=== PATIENT | male | born 1955 | race Caucasian/White ===

== ENCOUNTER 2021-11-18 13:25 | Inpatient (IN) | payer BC ==
[2021-11-18 15:00] LABS: ANION GAP 16.9 mmol/L (5-15); CHLORIDE,CL 100 mmol/L (98-107); SODIUM,NA 138 mmol/L (136-145)
[2021-11-18] MEDS ORDERED: methylPREDNISolone Sodium Succinate 125 MG/2 ML SDV IVPUSH ONE (15:11)
[2021-11-18] MEDS ORDERED: Albuterol/Ipratropium 3.0-0.5 MG/3 ML Neb Soln NEB ONE (15:13)
--- NOTE | 2021-11-18 15:31 | EDM.PDOC ---
ED HPI GENERAL MEDICAL PROBLEM - General Chief Complaint: Respiratory Problem Stated Complaint: POST COVID Time Seen by Provider: 11/18/21 14:15 Source of Information: Reports: Patient History Limitations: Reports: No Limitations - History of Present Illness INITIAL COMMENTS - FREE TEXT/NARRATIVE: States had positive home test for COVID ten days ago. Increasingly SOB. Arrived with sat of 87 on room air. Had no treatment for COVID at home. Onset: Gradual Onset Date: 11/08/21 Duration: Getting Worse Location: Reports: Generalized Improves with: Reports: Rest Worsens with: Reports: Movement Context: Reports: Sick Contact Associated Symptoms: Reports: Cough, Malaise, Shortness of Breath - Related Data Allergies Allergy/AdvReac Type Severity Reaction Status Date / Time No Known Allergies Allergy Verified 11/18/21 14:49 Home Meds: Home Meds Metoprolol Succinate 1 tab PO DAILY 11/18/21 [History] atorvaSTATin [Lipitor] 10 mg PO BEDTIME 11/18/21 [History] lisinopriL [Lisinopril] 1 tab PO DAILY 11/18/21 [History] Past Medical History Cardiovascular History: Reports: High Cholesterol, Hypertension Social & Family History - Tobacco Use Tobacco Use Status *Q: Never Tobacco User Tobacco Use Within Last Twelve Months: No - Alcohol Use Alcohol Use History: No - Living Situation & Occupation Living situation: Reports: ED ROS GENERAL - Review of Systems Review Of Systems: See Below Constitutional: Reports: Malaise HEENT: Reports: No Symptoms Respiratory: Reports: Shortness of Breath, Cough Cardiovascular: Reports: No Symptoms Endocrine: Reports: No Symptoms GI/Abdominal: Reports: No Symptoms : Reports: No Symptoms Musculoskeletal: Reports: No Symptoms Skin: Reports: No Symptoms Neurological: Reports: No Symptoms Psychiatric: Reports: No Symptoms Hematologic/Lymphatic: Reports: No Symptoms Immunologic: Reports: No Symptoms ED EXAM, GENERAL - Physical Exam Exam: See Below Exam Limited By: No Limitations General Appearance: Alert, No Apparent Distress Eye Exam: Bilateral Eye: EOMI, Normal Inspection Ears: Normal External Exam Nose: Normal Inspection, Normal Mucosa, No Blood Throat/Mouth: Normal Inspection, Normal Lips, Normal Teeth, Normal Oropharynx, Normal Voice, No Airway Compromise Head: Atraumatic, Normocephalic Neck: Normal Inspection, Supple, Non-Tender, Full Range of Motion Respiratory/Chest: No Respiratory Distress, No Accessory Muscle Use, Chest Non- Tender, Decreased Breath Sounds, Other (lungs sound somewhat coarse) Cardiovascular: Normal Peripheral Pulses, Regular Rate, Rhythm, Tachycardia GI/Abdominal: Normal Bowel Sounds, Soft, Non-Tender, No Distention Back Exam: Normal Inspection, Full Range of Motion Extremities: Normal Inspection, Normal Range of Motion, Non-Tender, Normal Capillary Refill Neurological: Alert, Oriented, No Motor/Sensory Deficits Psychiatric: Normal Affect, Normal Mood Skin Exam: Warm, Dry, Intact, Normal Color, No Rash Lymphatic: No Adenopathy Course - Vital Signs Last Recorded V/S: Last Vital Signs Temp 97.3 F 11/19/21 16:22 Pulse 71 11/19/21 17:20 Resp 20 11/19/21 17:20 BP 129/87 11/19/21 16:22 Pulse Ox 93 L 11/19/21 17:20 - Orders/Labs/Meds Orders: Medication Orders Acetaminophen (Acetaminophen 325 Mg Tab) 650 mg PO Q4H PRN PRN Reason: Fever Greater Than 101 Ascorbic Acid (Ascorbic Acid 500 Mg Tab) 1,000 mg PO BID [facility] Last Admin: 11/19/21 11:26 Dose: 1,000 mg Documented by: SAHIL Atorvastatin Calcium (Atorvastatin 10 Mg Tab) 10 mg PO BEDTIME [facility] Last Admin: 11/18/21 20:18 Dose: 10 mg Documented by: SEDRICK Cholecalciferol (Cholecalciferol (Vitamin D3) 25 Mcg Tab) 25 mcg PO DAILY [facility] Last Admin: 11/19/21 11:25 Dose: 25 mcg Documented by: SAHIL Dexamethasone 2 mg/ (Dexamethasone 4 mg) 6 mg PO DAILY [facility] Stop: 11/27/21 08:01 Last Admin: 11/19/21 10:07 Dose: 6 mg Documented by: Admin: 11/18/21 20:18 Dose: 6 mg Documented by: SEDRICK Enoxaparin Sodium (Enoxaparin 40 Mg/0.4 Ml Syringe) 40 mg SUBCUT 1200 [facility] Last Admin: 11/19/21 11:25 Dose: 40 mg Documented by: SAHIL Potassium Chloride/Sodium Chloride (Normal Saline With 20 Meq Kcl) 1,000 mls @ 100 mls/hr IV ASDIRECTED [facility] Last Admin: 11/19/21 17:18 Dose: 100 mls/hr Documented by: Infusion: 11/19/21 16:15 Dose: 100 mls/hr Documented by: Admin: 11/19/21 06:15 Dose: 100 mls/hr Documented by: Infusion: 11/19/21 06:10 Dose: 100 mls/hr Documented by: Admin: 11/18/21 20:10 Dose: 100 mls/hr Documented by: SEDRICK Remdesivir 100 mg/ Sodium (Chloride) 100 mls @ 100 mls/hr IV Q24H [facility] Stop: 11/22/21 09:59 Last Admin: 11/19/21 10:17 Dose: 100 mls/hr Documented by: SAHIL Lisinopril (Lisinopril 10 Mg Tab) 10 mg PO DAILY [facility] Last Admin: 11/19/21 10:18 Dose: 10 mg Documented by: SAHIL Metoprolol Succinate (Metoprolol Succinate 50 Mg Tab.Er) 100 mg PO DAILY [facility] Last Admin: 11/19/21 10:17 Dose: 100 mg Documented by: SAHIL Ondansetron HCl (Ondansetron 4 Mg/2 Ml Sdv) 4 mg IV Q6H PRN PRN Reason: Nausea/Vomiting Zinc Sulfate (Zinc Sulfate 220 Mg Cap) 220 mg PO DAILY [facility] Stop: 11/24/21 10:31 Last Admin: 11/19/21 11:26 Dose: 220 mg Documented by: SAHIL Labs: Laboratory Tests 11/18/21 11/18/21 11/18/21 Range/Units 02:27 14:27 14:27 WBC 8.9 (4.0-10.0) x10^3/uL RBC 5.09 (4.5-6.0) x10^6/uL Hgb 14.7 (14.0-18.0) g/dL Hct 42.0 (40.0-52.0) % MCV 82.5 (78.0-93.0) fL MCH 28.9 (26.0-32.0) pg MCHC 35.0 (32.0-36.0) g/dL RDW Coeff of Theodora 13.1 (10.0-15.0) % Plt Count 286 (130-400) x10^3/uL Immature Gran % (Auto) 0.60 H (0.00-0.43) % Neut % (Auto) 77.5 (50.0-80.0) % Lymph % (Auto) 13.3 L (25.0-50.0) % Brooks % (Auto) 8.4 (2.0-11.0) % Eos % (Auto) 0.1 (0.0-4.0) % Baso % (Auto) 0.1 L (0.2-1.2) % Neut # (Auto) 6.9 (1.8-7.7) x10^3/uL Lymph # (Auto) 1.2 (1.0-4.8) x10^3/uL Brooks # (Auto) 0.8 (0.0-0.8) x10^3/uL Eos # (Auto) 0.0 (0.0-0.5) x10^3/uL Baso # (Auto) 0.0 (0.0-0.2) x10^3/uL Immature Gran # (Auto) 0.05 (0.00-0.07) x10^3/uL D-Dimer, Quantitative 0.90 H (<=0.58) mg/LFEU Sodium 138 (136-145) mmol/L Potassium 3.9 (3.5-5.1) mmol/L Chloride 100 (98-107) mmol/L Carbon Dioxide 25 (21-32) mmol/L Anion Gap 16.9 H (5-15) mmol/L BUN 19 H (7-18) mg/dL Creatinine 1.2 (0.70-1.30) mg/dL Est Cr Clr Drug Dosing TNP Estimated GFR (MDRD) > 60 Glucose 115 H (70-99) mg/dL Lactic Acid (0.4-2.0) mmol/L Calcium 8.6 (8.5-10.1) mg/dL Corrected Calcium 9.2 (8.5-10.1) mg/dL Total Bilirubin 1.9 H (0.2-1.0) mg/dL Direct Bilirubin (0.00-0.20) mg/dL Indirect Bilirubin AST 68 H (15-37) U/L ALT 121 H (16-63) U/L Alkaline Phosphatase 114 (46-116) U/L Total Protein 7.6 (6.4-8.2) g/dL Albumin 3.2 L (3.4-5.0) g/dL Globulin 4.4 Albumin/Globulin Ratio 0.73 SARS CoV-2 RNA Rapid RENATO (NEGATIVE) 11/18/21 11/18/21 11/18/21 Range/Units 14:27 14:27 17:20 WBC (4.0-10.0) x10^3/uL RBC (4.5-6.0) x10^6/uL Hgb (14.0-18.0) g/dL Hct (40.0-52.0) % MCV (78.0-93.0) fL MCH (26.0-32.0) pg MCHC (32.0-36.0) g/dL RDW Coeff of Theodora (10.0-15.0) % Plt Count (130-400) x10^3/uL Immature Gran % (Auto) (0.00-0.43) % Neut % (Auto) (50.0-80.0) % Lymph % (Auto) (25.0-50.0) % Brooks % (Auto) (2.0-11.0) % Eos % (Auto) (0.0-4.0) % Baso % (Auto) (0.2-1.2) % Neut # (Auto) (1.8-7.7) x10^3/uL Lymph # (Auto) (1.0-4.8) x10^3/uL Brooks # (Auto) (0.0-0.8) x10^3/uL Eos # (Auto) (0.0-0.5) x10^3/uL Baso # (Auto) (0.0-0.2) x10^3/uL Immature Gran # (Auto) (0.00-0.07) x10^3/uL D-Dimer, Quantitative (<=0.58) mg/LFEU Sodium (136-145) mmol/L Potassium (3.5-5.1) mmol/L Chloride (98-107) mmol/L Carbon Dioxide (21-32) mmol/L Anion Gap (5-15) mmol/L BUN (7-18) mg/dL Creatinine (0.70-1.30) mg/dL Est Cr Clr Drug Dosing Estimated GFR (MDRD) Glucose (70-99) mg/dL Lactic Acid 1.8 (0.4-2.0) mmol/L Calcium (8.5-10.1) mg/dL Corrected Calcium (8.5-10.1) mg/dL Total Bilirubin 1.9 H (0.2-1.0) mg/dL Direct Bilirubin 1.01 H (0.00-0.20) mg/dL Indirect Bilirubin 0.89 AST 68 H (15-37) U/L ALT 121 H (16-63) U/L Alkaline Phosphatase 114 (46-116) U/L Total Protein 7.6 (6.4-8.2) g/dL Albumin 3.2 L (3.4-5.0) g/dL Globulin 4.4 Albumin/Globulin Ratio 0.73 SARS CoV-2 RNA Rapid RENATO Positive H (NEGATIVE) Meds: Medications Generic Name Dose Route Start Last Admin Trade Name Freq PRN Reason Stop Dose Admin Acetaminophen 650 mg 11/18/21 18:30 Acetaminophen 325 Mg Tab PO Q4H PRN Fever Greater Than 101 Ascorbic Acid 1,000 mg 11/19/21 10:30 11/19/21 11:26 Ascorbic Acid 500 Mg Tab PO 1,000 mg BID [facility] Administration Atorvastatin Calcium 10 mg 11/18/21 20:00 11/18/21 20:18 Atorvastatin 10 Mg Tab PO 10 mg BEDTIME [facility] Administration Cholecalciferol 25 mcg 11/19/21 10:30 11/19/21 11:25 Cholecalciferol (Vitamin D3) 25 Mcg Tab PO 25 mcg DAILY [facility] Administration Dexamethasone 2 mg/ 6 mg 11/18/21 18:45 11/19/21 10:07 Dexamethasone 4 mg PO 11/27/21 08:01 6 mg DAILY [facility] Administration Enoxaparin Sodium 40 mg 11/19/21 12:00 11/19/21 11:25 Enoxaparin 40 Mg/0.4 Ml Syringe SUBCUT 40 mg 1200 [facility] Administration Potassium Chloride/Sodium Chloride 1,000 mls @ 100 mls/hr 11/18/21 19:00 11/19/21 17:18 Normal Saline With 20 Meq Kcl IV 100 mls/hr ASDIRECTED [facility] Administration Remdesivir 100 mg/ Sodium 100 mls @ 100 mls/hr 11/19/21 09:00 11/19/21 10:17 Chloride IV 11/22/21 09:59 100 mls/hr Q24H [facility] Administration Lisinopril 10 mg 11/19/21 08:00 11/19/21 10:18 Lisinopril 10 Mg Tab PO 10 mg DAILY [facility] Administration Metoprolol Succinate 100 mg 11/19/21 08:00 11/19/21 10:17 Metoprolol Succinate 50 Mg Tab.Er PO 100 mg DAILY [facility] Administration Ondansetron HCl 4 mg 11/18/21 18:45 Ondansetron 4 Mg/2 Ml Sdv IV Q6H PRN Nausea/Vomiting Zinc Sulfate 220 mg 11/19/21 10:30 11/19/21 11:26 Zinc Sulfate 220 Mg Cap PO 11/24/21 10:31 220 mg DAILY [facility] Administration Discontinued Medications Generic Name Dose Route Start Last Admin Trade Name Freq PRN Reason Stop Dose Admin Albuterol/Ipratropium 3 ml 11/18/21 15:13 11/18/21 15:38 Albuterol/Ipratropium 3.0-0.5 Mg/3 Ml Neb Soln NEB 11/18/21 15:14 3 ml ONETIME ONE Administration Remdesivir 200 mg/ Sodium 250 mls @ 250 mls/hr 11/18/21 17:42 11/18/21 18:55 Chloride IV 11/18/21 18:41 250 mls/hr ONETIME ONE Administration Remdesivir 100 mg/ Sodium 100 mls @ 100 mls/hr 11/19/21 09:00 Chloride IV 11/22/21 09:59 Q24H [facility] Iopamidol 55 ml 11/18/21 15:40 11/18/21 15:40 Iopamidol 755 Mg/Ml 100 Ml Bottle IVPUSH 11/18/21 15:41 55 ml ONETIME ONE Administration Methylprednisolone Sodium Succinate 125 mg 11/18/21 15:11 11/18/21 15:38 Methylprednisolone Sodium Succinate 125 Mg/2 Ml Sdv IVPUSH 11/18/21 15:12 125 mg ONETIME ONE Administration - Radiology Interpretation CT Results Date: 11/18/21 (pneumonia) - Re-Assessments/Exams Free Text/Narrative Re-Assessment/Exam: 11/18/21 17:18 Cannot maintain o2 sats above 90 without supplemental oxygen. No distress. Dr. Redd accepted pt for admission. 11/18/21 17:36 Free Text/Narrative Re-Assessment/Exam: 11/18/21 17:43 COVID positive per our lab. Remdesivir 200mg initial dose ordered per request of Dr. Redd. Departure - Departure Time of Disposition: 18:30 Disposition: Admitted As Inpatient 68 Condition: Good Clinical Impression: Pneumonia due to 2019 novel coronavirus - Discharge Information - Problem List & Annotations (1) Pneumonia due to 2019 novel coronavirus SNOMED Code(s): 994909918177043631 Code(s): U07.1 - COVID-19; J12.82 - PNEUMONIA DUE TO CORONAVIRUS DISEASE 2019 Status: Acute Current Visit: Yes Onset Date: ~11/08/21 Annotation/Comment:: Home test with symptom onset on 11/08/21 - Problem List Review Problem List Initiated/Reviewed/Updated: Yes
[2021-11-18] MEDS ORDERED: Iopamidol 755 Mg/ML 100 ML Bottle IVPUSH ONE (15:40)
--- NOTE | 2021-11-18 17:02 | CR ---
[id number] RAD/RAD Chest PA And Lateral EXAM: RAD Chest PA And Lateral CLINICAL DATA: SHORTNESS OF BREATH COVID COMPARISON: No previous similar exam is available. FINDINGS: Extensive bilateral infiltrates are seen. The cardiomediastinal contour is moderately enlarged IMPRESSION: EXTENSIVE BILATERAL PNEUMONIA Pete Hunt MD 11/18/21 [id number] Thank you for allowing us to participate in the care of your patient.
--- NOTE | 2021-11-18 17:04 | CT ---
[id number] CT/CTA Chest Exam: CTA Chest Clinical Data: SHORTNESS OF BREATH COVID ELEVATED D-DIMER COMPARISON: NO PREVIOUS SIMILAR EXAM IS AVAILABLE FINDINGS: There are extensive bilateral infiltrates There is no pulmonary embolus. There is no mediastinal mass or adenopathy IMPRESSION: NO PULMONARY EMBOLI EXTENSIVE BILATERAL PNEUMONIA Pete Hunt MD 11/18/21 [id number] Thank you for allowing us to participate in the care of your patient.
[2021-11-18] MEDS ORDERED: REMDESIVIR 200 MG in Sodium Chloride 0.9% 250 ML IV ONE (17:42)
[2021-11-18] MEDS ORDERED: Acetaminophen 325 MG Tab PO PRN (18:30)
[2021-11-18] MEDS ORDERED: Ondansetron 4 MG/2 ML SDV IV PRN (18:45)
[2021-11-18 19:56] LABS: CORONAVIRUS COVID-19 NAA POSITIVE (NEGATIVE)
[2021-11-18] MEDS ORDERED: atorvaSTATin 10 MG Tab PO SCH (20:00)
[2021-11-18] MEDS: NS + KCl 20mEq/L 1,000 ML IV SCH (20:10)
[2021-11-18] MEDS: dexAMETHasone 2 MG, dexAMETHasone 4 MG PO SCH ×2 (20:18)
--- NOTE | 2021-11-18 20:25 | HP ---
CHIEF COMPLAINT: Shortness of breath with COVID. HISTORY OF PRESENT ILLNESS: The patient is a 66-year-old male who presented to the emergency room with being short of breath and ill feeling. He had done a home test for COVID, which was positive on 11/08/2021, and that was the day of his symptoms that had started. He had been out in [place] visiting family and had not been exposed to anybody else who had COVID at that time. He did not call the clinic to inform anybody to consider monoclonal antibody infusion. He has gradually gotten worse. He has not eaten well for a few days. He does not smell as normally as he should. He denies any chest pain. He does feel weak. He was last into the clinic to see Makayla Weber, his primary care provider in November. MEDICATIONS: The patient is currently on are Lipitor 10 mg 1 pill daily, lisinopril 10 mg 1 pill daily, metoprolol 100 mg SR 1 pill daily. ALLERGIES: None known. PAST MEDICAL HISTORY: The patient has hypertension, hyperlipidemia, obesity. 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 He has had impaired fasting glucose. The patient has not received COVID vaccination. PAST SURGICAL HISTORY: None. FAMILY MEDICAL HISTORY: His father had dementia, hypertension, diabetes. Mother had heart disease, osteoporosis, high cholesterol, SVT. Sisters had ovarian cancer. Son and daughter are healthy. SOCIAL HISTORY: The patient is currently retired. He previously had worked at [employer] (formerly [employer]) and then worked for the [employer] [place], but now just retired within the past year. He is . He is a former smoker. Does not consume alcohol. He has gained weight recently. REVIEW OF SYSTEMS: He is feeling weak, coughing, short of breath. Feels not much appetite. No bruising on his skin. He does have a scratch on the back of his right hand. OBJECTIVE: Vital Signs: Show temperature of 37.7, pulse 118, blood pressure 129/86, respiratory rate 24, saturations are 87 on room air. With 3 L, he goes up to 91%. General: Physical exam reveals an alert male who appears a little bit weak. Skin: [place], warm, and dry. HEENT: Pupils are equal and reactive to light. Pharynx is not examined due to COVID. Neck: No anterior cervical lymphadenopathy. Heart: Regular rate and rhythm without murmurs or bruits. Lungs: Have diminished breath sounds on bases. Abdomen: Obese, soft. Extremities: Lower extremities, no edema. His right upper hand dorsum has a scratch on it. Neurologic: He is alert and oriented x3. SUMMARY OF EMERGENCY ROOM COURSE: He was given a DuoNeb treatment. He was placed on oxygen. LABORATORY DATA: Showed positive COVID, a repeat in the emergency room. White blood cell count was 8.9, hemoglobin 14.7, platelets 286, 77 segs, 13 lymphs. D- dimer was positive at 0.9. Sodium is 138, potassium 3.9, creatinine is 1.2, BUN 19. GFR greater than 60. Glucose 118. Total bili is 1.01, AST 68, ALT 121, alk phos 114, albumin 3.2. DIAGNOSTIC DATA: Chest x-ray was read as having; extensive bilateral infiltrates are seen, cardiomegaly noted. Angiogram came back negative for PE. There are extensive bilateral infiltrates noted. No mediastinal lymphadenopathy. IMPRESSION: 1. Acute COVID-19 pneumonia. 2. Acute respiratory failure. 3. Hypertension. 4. Hypercholesterolemia. 5. Obesity. PLAN: The patient will be admitted to acute care. He will receive remdesivir for 5 days with initial dose of 200 mg and then 100 mg daily for 5 days. He was started on dexamethasone 6 mg 1 pill daily, which he will need for 10 days. We will do serial lab monitoring. We will place him on Lovenox for DVT prophylaxis. We will give him some IV fluids gingerly to help as he has not eaten well, but we will be careful to not over hydrate him. We will hold back on any further nebulizers to avoid aerosolization of COVID. The patient is code level 1 status. I anticipate that the patient will need to be hospitalized for a few days, possibly 5 days, and if the patient's respiratory status would worsen, then he may need to be transferred to a higher level of care. We will also check the patient for influenza just to make certain he does not have that as well. The patient will be in isolation as he does require oxygen right now, and he is just newly being treated with his remdesivir and Decadron. GM11/18/2021 19:06:01 MODL: 11/18/2021 20:20:25 /[id number]
[2021-11-19] MEDS: NS + KCl 20mEq/L 1,000 ML IV SCH ×2 (06:15→17:18)
[2021-11-19] MEDS ORDERED: REMDESIVIR 100 MG in Sodium Chloride 0.9% 100 ML IV SCH (09:00)
[2021-11-19 09:24] LABS: CHLORIDE,CL 104 mmol/L (98-107); SODIUM,NA 140 mmol/L (136-145)
[2021-11-19 09:27] LABS: ANION GAP 16.9 mmol/L (5-15)
[2021-11-19] MEDS: dexAMETHasone 2 MG, dexAMETHasone 4 MG PO SCH ×2 (10:07)
[2021-11-19] MEDS: Metoprolol Succinate 50 MG Tab.ER PO SCH (10:17)
[2021-11-19] MEDS: REMDESIVIR 100 MG in Sodium Chloride 0.9% 100 ML IV SCH (10:17)
[2021-11-19] MEDS: Lisinopril 10 MG Tab PO SCH (10:18)
--- NOTE | 2021-11-19 10:47 | PN ---
Progress Note for HUMAIRA GONZALES Date: 11/19/2021 Room #: VM.206 SUBJECTIVE: This is the patient's second hospital day after being admitted with coronavirus disease pneumonitis with respiratory failure. He slept well last evening, offers no concerns or complaints. It is noted that his oxygen requirement, though, did go up during the night to 5 L from admission where he initially was at 3 L. The patient is starting to cough up some material. He is trying to lie prone. OBJECTIVE: Vital Signs: His temperature is 36.0, his blood pressure is 145/85, respiratory rate is 20, saturations are 91% on 5 L. Heart: Regular rate and rhythm. Lungs: Have a few wheezes at bases bilaterally. Abdomen: Obese. Extremities: Lower extremities, no edema. LABORATORY DATA: Lab work today shows his white blood cell count 4.5, hemoglobin 13.0, platelets 319, with 72 segs, 21 lymphs. INR was 1.0. Sodium is 140, potassium 3.9, BUN 26, creatinine 1.1, GFR greater than 60, glucose 163, calcium 8.2, ferritin high at 3282, total bilirubin has improved to 1.2, AST has improved to 58, ALT improved to 113, alkaline phosphatase 93, LDH 418, which is elevated and this was his first reading. CK is elevated at 333 at first time run. CRP is 9.3. ProBNP 136, albumin 2.7. Procalcitonin 0.07. Influenza testing was negative. Coronavirus disease was positive. IMPRESSION: 1. Coronavirus disease pneumonia. 2. Respiratory failure related to coronavirus disease. 3. Elevated LFTs. 4. Elevated CK. 5. HTN 6. Hypercholesterolemia. 7. Obesity. PLAN: We will continue low-dose IV fluids as the patient has not been eating well. We will hold his statin. We will do serial monitoring of his labs. We will start incentive spirometry. We will continue his Remdesivir as well as Decadron. We will also add vitamin C, D, and zinc as well. The patient is still requiring oxygen, but we will not do nebs at all. GM11/19/2021 10:22:16 MODL: 11/19/2021 10:40:06 /[id number] [facility]
[2021-11-19] MEDS: Enoxaparin 40 MG/0.4 ML Syringe SUBCUT SCH (11:25)
[2021-11-19] MEDS: Cholecalciferol (Vitamin D3) 25 MCG Tab PO SCH (11:25)
[2021-11-19] MEDS: Ascorbic Acid 500 MG Tab PO SCH ×2 (11:26→20:46)
[2021-11-19] MEDS: Zinc Sulfate 220 MG Cap PO SCH (11:26)
[2021-11-20] MEDS: NS + KCl 20mEq/L 1,000 ML IV SCH (01:53)
[2021-11-20 09:03] LABS: CHLORIDE,CL 108 mmol/L (98-107); SODIUM,NA 142 mmol/L (136-145)
[2021-11-20 09:04] LABS: ANION GAP 13.7 mmol/L (5-15)
--- NOTE | 2021-11-20 09:13 | PN ---
Progress Note for HUMAIRA GONZALES Date: 11/20/2021 Room #: VM.206 SUBJECTIVE: This is his third hospital day with COVID. He is feeling better. He slept better. His appetite has improved. It is noted that he has been able to be weaned down on his oxygen to some extent. OBJECTIVE: Vital Signs: His weight is 129.8 kg which is up 2.2 kg from admission that may reflect dehydration that has improved. Temperature is 36.4, pulse 79, blood pressure is 119/77, saturations are 94% on 4 L. Heart: Regular rate and rhythm. Lungs: Have diminished breath sounds on bases. Abdomen: Soft. Extremities: No edema. LABORATORY DATA: Lab is pending today. IMPRESSION: 1. Coronavirus disease pneumonia. 2. Respiratory failure, improving. 3. Hypertension. 4. Hypercholesterolemia. 5. Obesity. 6. Elevated liver function tests. 7. Elevated CK. PLAN: We will stop his IV fluids right now. We will stop the continuous heart monitoring, and we will just do oxygen monitoring intermittently every 4 hours, and the patient is improving. GM11/20/2021 08:40:45 MODL: 11/20/2021 09:05:57 /[id number]
[2021-11-20] MEDS: Ascorbic Acid 500 MG Tab PO SCH ×2 (10:25→19:27)
[2021-11-20] MEDS: dexAMETHasone 2 MG, dexAMETHasone 4 MG PO SCH ×2 (10:26)
[2021-11-20] MEDS: Lisinopril 10 MG Tab PO SCH (10:26)
[2021-11-20] MEDS: Metoprolol Succinate 50 MG Tab.ER PO SCH (10:27)
[2021-11-20] MEDS: Cholecalciferol (Vitamin D3) 25 MCG Tab PO SCH (10:27)
[2021-11-20] MEDS: Zinc Sulfate 220 MG Cap PO SCH (10:27)
[2021-11-20] MEDS: REMDESIVIR 100 MG in Sodium Chloride 0.9% 100 ML IV SCH (10:29)
--- NOTE | 2021-11-20 12:54 | CR ---
[id number] RAD/RAD Chest PA or AP 1V EXAM: SINGLE VIEW CHEST. INDICATION: FOLLOW-UP PNEUMONIA COMPARISON: CORRELATION IS MADE WITH NOVEMBER 18, 2021 FINDINGS: Bilateral infiltrates are not decreased The cardiac silhouette is stable IMPRESSION: NO CHANGE SINCE LAST EXAM Pete Hunt MD 11/20/21 6003 Thank you for allowing us to participate in the care of your patient.
[2021-11-20] MEDS: Enoxaparin 40 MG/0.4 ML Syringe SUBCUT SCH (13:25)
[2021-11-20] MEDS: Lactated Ringers 1,000 ML IV SCH ×2 (13:26→21:41)
[2021-11-21] MEDS: Lactated Ringers 1,000 ML IV SCH (06:16)
[2021-11-21 07:31] LABS: CHLORIDE,CL 106 mmol/L (98-107); SODIUM,NA 139 mmol/L (136-145)
[2021-11-21 07:33] LABS: ANION GAP 11.2 mmol/L (5-15)
--- NOTE | 2021-11-21 10:45 | PN ---
Progress Note for HUMAIRA GONZALES Date: 11/21/2021 Room #: VM.206 SUBJECTIVE: This is the patient's fourth hospital day for COVID treatment. He is getting tired of being in the current room. He is feeling a little bit better. He is able to breathe a little bit deeper. Patient's Lipitor has been held. We did resume IV fluids yesterday because his CK had gone up higher. The patient otherwise offers no concerns. OBJECTIVE: Vital Signs: His weight is 128.6, which is down 1 kg from yesterday. Temperature is 37.1, blood pressure is 128/85, and respiratory rate is 23. He is on 2 L to be 90%. Heart: Regular rate and rhythm. Lungs: Clear to auscultation. Abdomen: Soft. General: He appears in no acute distress. LABORATORY DATA: His lab today shows that his white blood cell count is 11.7, hemoglobin 12.8, and platelets are 367. Sodium 139, potassium 4.8, and creatinine 1.2. His AST has stayed about the same at 69, ALT 157 up slightly. LDH is 384, which is up slightly from yesterday. CK has improved to 363. CRP is 4.9. IMPRESSION: 1. COVID pneumonitis. 2. Respiratory failure secondary to COVID. 3. Transaminitis. 4. Elevated CPK. PLAN: We will saline lock his IV fluids. Encourage the patient to be up moving around and use incentive spirometry. Anticipate, he will be able to be discharged home tomorrow hopefully without oxygen, but if he needs to be set up with home oxygen that also can be arranged.He can come out of isolation as he's been sick beyond 10 days, without a fever. GM11/21/2021 10:17:18 MODL: 11/21/2021 10:38:29 /[id number] ARMANI
[2021-11-21] MEDS: dexAMETHasone 2 MG, dexAMETHasone 4 MG PO SCH ×2 (10:56)
[2021-11-21] MEDS: Ascorbic Acid 500 MG Tab PO SCH ×2 (10:57→20:44)
[2021-11-21] MEDS: Cholecalciferol (Vitamin D3) 25 MCG Tab PO SCH (10:57)
[2021-11-21] MEDS: Zinc Sulfate 220 MG Cap PO SCH (10:58)
[2021-11-21] MEDS: Metoprolol Succinate 50 MG Tab.ER PO SCH (10:59)
[2021-11-21] MEDS: Lisinopril 10 MG Tab PO SCH (10:59)
[2021-11-21] MEDS: REMDESIVIR 100 MG in Sodium Chloride 0.9% 100 ML IV SCH (11:09)
[2021-11-21] MEDS: Enoxaparin 40 MG/0.4 ML Syringe SUBCUT SCH (11:09)
[2021-11-21] MEDS ORDERED: Potassium Chloride Riders 10 MEQ in Premix Bag 1 BAG IV ONE (14:00)
[2021-11-22 07:32] LABS: CHLORIDE,CL 106 mmol/L (98-107); SODIUM,NA 141 mmol/L (136-145)
[2021-11-22 07:36] LABS: ANION GAP 11.5 mmol/L (5-15)
[2021-11-22] MEDS: Cholecalciferol (Vitamin D3) 25 MCG Tab PO SCH (08:12)
[2021-11-22] MEDS: Metoprolol Succinate 50 MG Tab.ER PO SCH (08:12)
[2021-11-22] MEDS: Ascorbic Acid 500 MG Tab PO SCH (08:12)
[2021-11-22] MEDS: Zinc Sulfate 220 MG Cap PO SCH (08:12)
[2021-11-22] MEDS: dexAMETHasone 2 MG, dexAMETHasone 4 MG PO SCH ×2 (08:13)
[2021-11-22] MEDS: Lisinopril 10 MG Tab PO SCH (08:13)
[2021-11-22] MEDS: REMDESIVIR 100 MG in Sodium Chloride 0.9% 100 ML IV SCH (08:18)
--- NOTE | 2021-11-22 08:41 | PN ---
Progress Note for HUMAIRA GONZALES Date: 11/22/2021 Room #: VM.206 SUBJECTIVE: This is the patient's fifth hospital day with having COVID. The patient is feeling better. He was able to be weaned off oxygen. He is eager for discharge home. He is still a little bit weak. The patient was taken out of isolation yesterday as he had been beyond the time limit for COVID isolation. OBJECTIVE: Vital Signs: His weight is 128.4, which is down 0.2 from yesterday. His temperature is 36.6, pulse 70, blood pressure is 120/78, sats are 93% on room air. Heart: Regular rate and rhythm. Lungs: Clear to auscultation. Abdomen: Soft. Psychiatric: Mood is quite good. LABORATORY DATA: His white blood cell count is 6.8, hemoglobin 12.6. Sodium is 141, potassium 4.5, creatinine 1.0, glucose 101. Ferritin is improved at 1987. AST is normal at 37, ALT improved to 120, alk phos 80. LDH is improved to 333. CK is elevated at 458. CXR Preliminary, still persistant course bilateral infiltrates/ IMPRESSION: 1. Coronavirus disease pneumonia. 2. Respiratory failure, which is resolved. 3. Elevated CK. 4. Elevated liver function tests, which have improved. PLAN: The patient will be discharged home today. We will have him hold his Lipitor until he is seen in the clinic. Will have him follow up with Makayla Weber in a week's time. He will still continue on the Decadron. GM11/22/2021 08:21:54 MODL: 11/22/2021 08:37:01 /[id number] [facility]
--- NOTE | 2021-11-22 10:17 | CR ---
[id number] RAD/RAD Chest PA And Lateral EXAM: RAD Chest PA And Lateral INDICATION: FOLLOW UP COVID PNEUMONIA. COMPARISON: November 20, 2021. DISCUSSION: Again identified are patchy pulmonary infiltrates bilaterally, left greater than right. No significant change when compared to the prior study. No pneumothorax. No pleural effusion. IMPRESSION: Stable chest. Pelon Bunch DO 11/22/21 1016 Thank you for allowing us to participate in the care of your patient.
--- NOTE | 2021-11-22 22:27 | DISCH ---
DISCHARGE DIAGNOSES: 1. COVID-19 pneumonia. 2. Respiratory failure secondary to COVID. 3. Elevated creatine kinase test. 4. Elevated liver function tests. 5. Hypertension. 6. Obesity. 7. Hypercholesterolemia. 8. Obstructive sleep apnea. SUMMARY OF ADMIT HISTORY AND PHYSICAL: The patient presented to the emergency room on 11/18/2021 after being short of breath. The patient had done a home COVID test that was positive on 11/08/2021 and that was the day his symptoms started. He had been out in [place], visiting relatives. He had not gotten the COVID vaccine. He did not inform anybody that he was positive to consider monoclonal antibody infusion. He has gradually gotten worse. He has not eaten well for a few days. He does not smell normally. Denies chest pain. He does feel weak. He normally sees KAREN Benz, as his primary care provider. Physical exam on admission, his temperature was 37.7, pulse was 118, blood pressure 129/86, respiratory rate 24. Sats were 87 on room air; with 3 L, he went up to 91%. His lungs had diminished breath sounds bilaterally. Labs showed his white blood cell count 8.9, hemoglobin 14.7, platelets 289, 77 segs, 13 lymphocytes. D-dimer positive at 0.9. Sodium 138, potassium 3.9, creatinine 1.2, BUN 19, GFR greater than 60, glucose 118, total bilirubin 1.01, AST 68, ALT 121, alkaline phosphatase 114, albumin 3.2. Chest x-ray had extensive bilateral infiltrates with cardiomegaly. Angiogram of chest came back negative for PE, but had extensive bilateral infiltrates. SUMMARY OF HOSPITAL COURSE: The patient was admitted on 11/18/2021 and discharged on 11/22/2021. The patient was placed on acute care. He was given remdesivir 200 mg for day #1 IV and then 100 mg days 2 through 5. He was placed on dexamethasone 6 mg daily oral. The patient was given IV hydration as he was not eating well; however, being somewhat cautious to not over-hydrate his lungs. The patient had been given albuterol neb in the ER, but it was not continued while he was hospitalized. Additional lab work was then requested, which showed that he was negative for influenza A and negative for influenza B, his lactic acid was 1.8. By 11/19, white blood cell count went down to 4.5. On 11/19, his magnesium was 2.4, ferritin high at 3284, total bilirubin improved to 1.2, AST had stayed the same, LDH was elevated at 418, CK was elevated at 333, CRP was 9.3, proBNP was 136, procalcitonin was 0.7. IV fluids were stopped; however, it was noted the patient was not eating well. By 11/20, his CK went up to 417, AST up to 63, ALT up to 138. By 11/21, he was eating better, feeling better. His oxygen requirements were able to be reduced down. He did have maximum requirement of 5 L on admission and was able to go down to 2 L by 11/21. Additional lab following up on 11/22 showed white blood cell count 6.8, hemoglobin 12.6, platelets 353. Sodium 141, potassium 4.5, creatinine 1.0, GFR greater than 60. Ferritin had improved to 1987. Alkaline phosphatase improved to 120. LDH improved to 333. CK did bump up slightly to 458. The patient's chest x-rays were followed and on 11/22/2021, chest x-ray still showed bilateral infiltrates, which had stayed stable. To note, while the patient was hospitalized, his Lipitor was held because of concern that that may have been the cause of his elevated CK. The patient was felt stable for discharge by 11/22. He was on room air and he received his last dose of remdesivir. The patient had also been covered with vitamin C, vitamin D, and zinc per protocol for COVID while hospitalized. MEDICATIONS AT DISCHARGE: Lisinopril 10 mg 1 pill daily, metoprolol succinate 100 mg 1 pill daily, Lipitor 10 mg at bedtime was held until his clinic recheck, dexamethasone 6 mg 1 pill daily for 5 more days. FOLLOWUP: The patient will follow up with Makayla Weber in a week's time. If in the meantime he becomes more short of breath, he should return to be seen. GM11/22/2021 20:11:29 MODL: 11/22/2021 22:21:37 /[id number] ARMANI
== END 2021-11-22 11:35 | disposition home or self-care (01) | DRG 137 ==
LOC: VM.ED 13:25 → UNDOADMIN 17:55 → VM.MS 17:55
PROVIDERS: ADMIT Family Medicine; ATTEND Physician Assistant
PROC: 8E0ZXY6 Isolation (ICD-10-PCS; principal; 2021-11-18)
PROC: XW033E5 Introduction of Remdesivir Anti-infective into Peripheral Vein, Percutaneous Approach, New Technology Group 5 (ICD-10-PCS; 2021-11-18)
PROC: 3E0DX3Z Introduction of Anti-inflammatory into Mouth and Pharynx, External Approach (ICD-10-PCS; 2021-11-18)
DX: U07.1 COVID-19 (principal); J12.82 Pneumonia due to coronavirus disease 2019; J96.00 Acute respiratory failure, unspecified whether with hypoxia or hypercapnia; E66.9 Obesity, unspecified; Z68.38 Body mass index [BMI] 38.0-38.9, adult; E78.00 Pure hypercholesterolemia, unspecified; G47.33 Obstructive sleep apnea (adult) (pediatric); I10 Essential (primary) hypertension; E78.5 Hyperlipidemia, unspecified; Z87.891 Personal history of nicotine dependence; Z79.899 Other long term (current) drug therapy
CPT/HCPCS: 0240U; 36415; 71045; 71046; 71275; 80048; 80053; 80076; 82550; 82728; 83605; 83615; 83735; 83880; 84145; 85025; 85379; 85610; 86140; 93005; 94640; 96374; 99285-25; A9270-GY; J1650; J2930; J3480; J7050; J7120; J7620-GY; J8540; Q9967; U0002